=== PATIENT | female | born 1960 | race Caucasian/White ===

== ENCOUNTER → 2018-12-13 | Outpatient (CLI) | payer OTHER ==
--- NOTE | 2018-12-13 11:07 | REP ---
MRI LEFT KNEE WITHOUT CONTRAST: HISTORY: Sprain. Comparison left knee radiographs November 03, 2018. TECHNIQUE: Axial, coronal, and sagittal imaging planes utilized. T1, proton density and T2-weighted scans were included. MRI FINDINGS: There are is a large area of marrow edema in the medial tibial plateau consistent with contusion. This extends under the tibial spines as well centrally in the proximal tibia. There is a small zone of marrow edema in the lateral femoral condyle adjacent to the intercondylar notch. A tiny zone of subchondral marrow edema is seen in the superior pole the patella centrally. There is advanced chondromalacia patella centrally with nearly full-thickness articular cartilage thinning. A joint effusion is present mild in degree. There is a tiny Velasco's cyst. There is considerable extra-articular subcutaneous edema in the anterior pretibial and prepatellar soft tissues diffusely. No localized fluid collection is appreciated. No overt fracture is seen. The anterior and posterior cruciate ligaments appear intact. Patellar and quadriceps tendons have an intact appearance. There is no MR evidence of medial or lateral collateral ligament disruption. There is osteoarthritic spurring mild in degree affecting the lateral, and to a lesser extent medial compartments. Mild inferior pole articular spurring of the patella is noted as well. These changes are consistent with osteoarthritis. No lateral meniscal tear is seen. There is a posterior horn tear in the medial meniscus and there is degenerative intrameniscal signal in the posterior body of the medial meniscus. There is some medial meniscal extrusion. This bows the MCL somewhat. There is advanced multifocal chondromalacia affecting the medial femoral condyle and to some degree lateral femoral condyle. IMPRESSION: Extensive contusion pattern in the medial tibial plateau. No overt fracture. 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 Degenerative tear posterior horn medial meniscus with degenerative intrameniscal changes in the medial meniscus. Extensive area of pretibial and prepatellar extra-articular soft tissue edema. Electronically Signed by Adeel Corrales MD 12/13/2018 05:26 P
== END ==
LOC: M RAD 07:12
PROVIDERS: ATTEND Physician Assistant Medical
DX: S83.412A Sprain of medial collateral ligament of left knee, initial encounter (principal); M71.22 Synovial cyst of popliteal space [Baker], left knee; M25.462 Effusion, left knee; M17.12 Unilateral primary osteoarthritis, left knee; M94.262 Chondromalacia, left knee; X58.XXXA Exposure to other specified factors, initial encounter; Y92.9 Unspecified place or not applicable

== ENCOUNTER 2023-01-12 07:29 | Emergency (ER) | payer OTHER ==
[~2023-01-12] VITALS: Ht 167.6 cm; Wt 155.0 kg
[2023-01-12] MEDS ORDERED: BUPR75TA5 (07:48)
[2023-01-12] MEDS ORDERED: D3-5CAP (07:49)
[2023-01-12] MEDS ORDERED: METF500T13 (07:49)
[2023-01-12] MEDS ORDERED: VALS40TA9 (07:49)
[2023-01-12] MEDS ORDERED: ALBU8.5H (07:49)
[2023-01-12 08:36] LABS: BASO # 0.1 10^3/uL (0.0-0.2); BASO % 0.7 % (0.0-1.0); EOS # 0.2 10^3/uL (0.0-0.5); EOS % 2.3 % (0.0-3.0); HEMATOCRIT 42.2 % (36.0-47.0); HEMOGLOBIN 13.4 g/dl (12.0-15.5); LYMPH # 1.4 10^3/uL (1.5-5.0); LYMPH % 18.2 % (24.0-44.0); MEAN CORPUSCULAR HGB CONC 31.8 g/dl (32.0-36.5); MEAN CORPUSCULAR VOLUME 85.1 fl (80.0-96.0); MONO # 0.9 10^3/uL (0.0-0.8); MONO % 11.3 % (2.0-8.0); NEUTROPHILS # 5.1 10^3/uL (1.5-8.5); NEUTROPHILS % 66.7 % (36.0-66.0); PLATELET COUNT, AUTOMATED 247 10^3/uL (150-450); RED BLOOD COUNT 4.96 10^6/uL (4.00-5.40); WHITE BLOOD COUNT 7.7 10^3/uL (4.0-10.0)
[2023-01-12 08:57] LABS: LIPASE 80 U/L (12-53)
[2023-01-12 08:59] LABS: ALBUMIN 3.9 G/DL (3.2-5.2); ALKALINE PHOSPHATASE 71 U/L (46-116); ALT/SGPT 29 U/L (7.0-40); AST/SGOT 20 U/L (<34); BILIRUBIN,DIRECT 0.2 MG/DL (<0.4); BILIRUBIN,TOTAL 0.5 MG/DL (0.3-1.2); TOTAL PROTEIN 7.7 G/DL (5.7-8.2)
[2023-01-12 09:21] LABS: CK-MB VALUE MASS < 1.0 NG/ML (<3.6); CPK CREATINE PHOSPHOKINASE 123 U/L (34-145); MB/CK RELATIVE INDEX 0.81 (< OR =4)
[2023-01-12 09:40] VITALS: BP 140/89
== END 2023-01-12 09:41 | disposition home or self-care (01) ==
LOC: M ED 07:29
DX: R10.9 Unspecified abdominal pain (principal); R11.2 Nausea with vomiting, unspecified; R07.89 Other chest pain; E11.9 Type 2 diabetes mellitus without complications; I10 Essential (primary) hypertension; Z87.891 Personal history of nicotine dependence; Z79.51 Long term (current) use of inhaled steroids; Z79.84 Long term (current) use of oral hypoglycemic drugs; Z79.899 Other long term (current) drug therapy